=== PATIENT | male | born 1955 | race Caucasian/White ===

== ENCOUNTER 2024-03-27 12:56 | Emergency (ER) | payer OTHER ==
--- NOTE | 2024-03-27 13:35 | ED ---
Abdominal Pain HPI - General Source: patient, RN notes reviewed, old records reviewed Mode of arrival: ambulatory Limitations: no limitations <Vinod Cox - Last Filed: 03/27/24 13:35> <Vinod Madrigal - Last Filed: 03/27/24 19:09> - General Chief Complaint: Abdominal Pain Stated Complaint: Abd pain - History of Present Illness Initial Comments: QN- Male to ER for evaluation of severe abdominal pain. Decreased bowel movements positive nausea, no fevers, pain is severe with a long complicated abdominal surgical history (Vinod Cox) This is a 68-year-old male who presents to the emergency department complaining of abdominal pain for last 3 to 4 months. Patient states he went to [employer] today because he is a drinker and he wants some help. Patient states when he got there he told me he was having abdominal pain so they sent him into the emergency department. Patient denies any nausea vomiting. Patient has any diarrhea. I know he told triage that he might have some nausea but he denied it to me. Patient denies chest pain difficulty breathing shortness of breath. Patient has any fever chills or cough. Patient denies any back pain. Patient denies any recent injury or trauma. (Vinod Madrigal) - Related Data Home Medications Medication Instructions Recorded Confirmed Albuterol Sulfate [Ventolin HFA] 1 - 2 puff INHALATION RT-Q4H PRN 03/27/24 03/27/24 Docusate [Colace] 100 mg PO BID PRN 03/27/24 03/27/24 Metoprolol Succinate (ER) [Toprol 25 mg PO DAILY 03/27/24 03/27/24 Xl] Mometasone/Formoterol [Dulera 200 2 puff INHALATION RT-BID 03/27/24 03/27/24 Mcg-5 Mcg Inhaler] Montelukast [Singulair] 10 mg PO DAILY 03/27/24 03/27/24 Multivitamins, Thera [Multivitamin 1 tab PO DAILY 03/27/24 03/27/24 (formulary)] Omeprazole 20 mg PO BID PRN 03/27/24 03/27/24 Rosuvastatin Calcium 5 mg PO DAILY 03/27/24 03/27/24 Tamsulosin [Flomax] 0.4 mg PO DAILY 03/27/24 03/27/24 Tiotropium 2.5 Mcg/Puff [Spiriva 1 puff INHALATION RT-DAILY 03/27/24 03/27/24 Respimat 2.5 Mcg] levETIRAcetam [Keppra] 500 mg PO Q12HR 03/27/24 03/27/24 Allergies Allergy/AdvReac Type Severity Reaction Status Date / Time No Known Allergies Allergy Verified 03/27/24 16:01 Review of Systems ROS Other: All systems not noted in ROS Statement are negative. <Vinod Cox - Last Filed: 03/27/24 13:35> ROS Other: All systems not noted in ROS Statement are negative. <Vinod Madrigal - Last Filed: 03/27/24 19:09> ROS Statement: Those systems with pertinent positive or pertinent negative responses have been documented in the HPI. Past Medical History Past Medical History: Asthma, COPD History of Any Multi-Drug Resistant Organisms: None Reported Additional Past Surgical History / Comment(s): Hernia Repair Past Psychological History: No Psychological Hx Reported Smoking Status: Current every day smoker Past Alcohol Use History: Occasional Past Drug Use History: None Reported <Vinod Cox - Last Filed: 03/27/24 13:35> General Exam Limitations: no limitations General appearance: alert, in no apparent distress Head exam: Present: atraumatic, normocephalic, normal inspection Eye exam: Present: normal appearance, PERRL, EOMI. Absent: scleral icterus, conjunctival injection, periorbital swelling ENT exam: Present: normal exam, mucous membranes moist Neck exam: Present: normal inspection. Absent: tenderness, meningismus, lymphadenopathy Respiratory exam: Present: normal lung sounds bilaterally. Absent: respiratory distress, wheezes, rales, rhonchi, stridor Cardiovascular Exam: Present: regular rate, normal rhythm, normal heart sounds. Absent: systolic murmur, diastolic murmur, rubs, gallop, clicks GI/Abdominal exam: Present: soft, normal bowel sounds. Absent: distended, tenderness, guarding, rebound, rigid Extremities exam: Present: normal inspection, full ROM, normal capillary refill. Absent: tenderness, pedal edema, joint swelling, calf tenderness Back exam: Present: normal inspection Neurological exam: Present: alert, oriented X3, CN II-XII intact Psychiatric exam: Present: normal affect, normal mood Skin exam: Present: warm, dry, intact, normal color. Absent: rash <Vinod Cox - Last Filed: 03/27/24 13:35> <Vinod Madrigal - Last Filed: 03/27/24 19:09> - General Exam Comments Initial Comments: GENERAL: Patient is well-developed and well-nourished. Patient is nontoxic and well- hydrated and is in no acute distress. Patient appears intoxicated ENT: Neck is soft and supple. No significant lymphadenopathy is noted. Oropharynx is clear. Moist mucous membranes. Neck has full range of motion without eliciting any pain. EYES: The sclera were anicteric and conjunctiva were pink and moist. Extraocular movements were intact and pupils were equal round and reactive to light. Eyelids were unremarkable. PULMONARY: Unlabored respirations. Patient has expiratory wheezing CARDIOVASCULAR: There is a regular rate and rhythm without any murmurs gallops or rubs. ABDOMEN: Patient has tenderness in the left lower quadrant. Patient's abdomen is mildly distended SKIN: Patient has ecchymosis on bilateral arms up into the anterior chest NEUROLOGIC: Patient is alert and oriented x3. Cranial nerves II through XII are grossly intact. Motor and sensory are also intact. Normal speech, volume and content. Symmetrical smile. MUSCULOSKELETAL: Normal extremities with adequate strength and full range of motion. LYMPHATICS: No significant lymphadenopathy is noted PSYCHIATRIC: Normal psychiatric evaluation. (Vinod Madrigal) Course <Vinod Cox - Last Filed: 03/27/24 13:35> Vital Signs 03/27/24 03/27/24 03/27/24 13:27 15:33 15:46 Temperature 98.6 F Pulse Rate 98 93 91 Respiratory 20 Rate Blood Pressure 104/68 O2 Sat by Pulse 90 L Oximetry - Reevaluation(s) Reevaluation #1: 03/27/24 13:35 QN completed by myself Dr. Cox (Vinod Cox) Medical Decision Making - Lab Data Result diagrams: 03/27/24 13:51 03/27/24 16:45 <Vinod Madrigal - Last Filed: 03/27/24 19:09> - Medical Decision Making Was pt. sent in by a medical professional or institution (NGUYỄN Guaman, PETROLEUM INSPECTOR SUPERVISOR, urgent care, hospital, or penitentiary...) When possible be specific @ -Patient was sent in by [facility] Did you speak to anyone other than the patient for history (EMS, parent, family, police, friend...)? What history was obtained from this source @ -No Did you review nursing and triage notes (agree or disagree)? Why? @ -I reviewed and agree with nursing and triage notes Were old charts reviewed (outside hosp., previous admission, EMS record, old EKG, old radiological studies, urgent care reports/EKG's, penitentiary records)? Report findings @ -No old charts were reviewed Differential Diagnosis (chest pain, altered mental status, abdominal pain women, abdominal pain men, vaginal bleeding, weakness, fever, dyspnea, syncope, headache, dizziness, GI bleed, back pain, seizure, CVA, palpatations, mental he alth, musculoskeletal)? @ -Differential Abdominal Pain Men: Appendicitis, cholecystitis, diverticulosis, ischemic bowel, pancreatitis, hepatitis, UTI, gastroenteritis, AAA, incarcerated hernia, bowel obstruction, constipation, inflammatory bowel, hepatitis, peptic ulcer disease, splenic infarction, perforated viscus, testicular torsion, this is not meant to be an all-inclusive list EKG interpreted by me (3pts min.). @ -As above X-rays interpreted by me (1pt min.). @ -None done CT interpreted by me (1pt min.). @ -CT of the abdomen pelvis showed no acute abnormality U/S interpreted by me (1pt. min.). @ -None done What testing was considered but not performed or refused? (CT, X-rays, U/S, lab s)? Why? @ -None What meds were considered but not given or refused? Why? @ -None Did you discuss the management of the patient with other professionals (professionals i.e. NGUYỄN Guaman, PETROLEUM INSPECTOR SUPERVISOR, lab, RT, psych nurse, clinical social worker, hvac mechanical engineer, teacher, radiation officer, family caseworker)? Give summary @ -No Was smoking cessation discussed for >3mins.? @ -No Was critical care preformed (if so, how long)? @ -No Were there social determinants of health that impacted care today? How? (Homelessness, low income, unemployed, alcoholism, drug addiction, transportation, low edu. Level, literacy, decrease access to med. care, custodial, rehab)? @ -No Was there de-escalation of care discussed even if they declined (Discuss DNR or withdrawal of care, Hospice)? DNR status @ -No What co-morbidities impacted this encounter? (DM, HTN, Smoking, COPD, CAD, Cancer, CVA, ARF, Chemo, Hep., AIDS, mental health diagnosis, sleep apnea, morbid obesity)? @ -None Was patient admitted / discharged? Hospital course, mention meds given and route, prescriptions, significant lab abnormalities, going to OR and other pertinent info. @ -Patient did not appear in any distress in the emergency department. Patient was eating while in the emergency department. Patient was ambulating around the emergency department with no distress. Patient will be discharged to go back to [facility] Undiagnosed new problem with uncertain prognosis? @ -No Drug Therapy requiring intensive monitoring for toxicity (Heparin, Nitro, Insulin, Cardizem)? @ -No Were any procedures done? @ -No Diagnosis/symptom? @ -Abdominal pain Acute, or Chronic, or Acute on Chronic? @ -Acute Uncomplicated (without systemic symptoms) or Complicated (systemic symptoms)? @ -Complicated Side effects of treatment? @ -No Exacerbation, Progression, or Severe Exacerbation? @ -No Poses a threat to life or bodily function? How? (Chest pain, [place], [place], pneumonia, PE, COPD, DKA, ARF, appy, cholecystitis, CVA, Diverticulitis, Homicidal, Suicidal, threat to staff... and all critical care pts) @ -No Diagnosis/symptom? @ -Alcohol intoxication Acute, or Chronic, or Acute on Chronic? @ -Acute Uncomplicated (without systemic symptoms) or Complicated (systemic symptoms)? @ -Complicated Side effects of treatment? @ -None Exacerbation, Progression, or Severe Exacerbation] @ -No Poses a threat to life or bodily function? @ -No (Vinod Madrigal) - Lab Data Lab Results 03/27/24 03/27/24 03/27/24 Range/Units 13:51 16:45 16:45 WBC 8.3 (3.8-10.6) k/uL RBC 4.42 (4.30-5.90) m/uL Hgb 13.4 (13.0-17.5) gm/dL Hct 42.4 (39.0-53.0) % MCV 96.0 (80.0-100.0) fL MCH 30.3 (25.0-35.0) pg MCHC 31.6 (31.0-37.0) g/dL RDW 20.8 H (11.5-15.5) % Plt Count 100 L (150-450) k/uL MPV 8.4 Neutrophils % 79 % Lymphocytes % 9 % Monocytes % 8 % Eosinophils % 0 % Basophils % 0 % Neutrophils # 6.5 (1.3-7.7) k/uL Lymphocytes # 0.7 L (1.0-4.8) k/uL Monocytes # 0.7 (0-1.0) k/uL Eosinophils # 0.0 (0-0.7) k/uL Basophils # 0.0 (0-0.2) k/uL Anisocytosis Moderate Macrocytosis Slight PT 10.8 (10.0-12.5) sec INR 1.0 (<1.2) APTT 24.4 (22.0-30.0) sec Sodium (137-145) mmol/L Potassium (3.5-5.1) mmol/L Chloride (98-107) mmol/L Carbon Dioxide (22-30) mmol/L Anion Gap mmol/L BUN (9-20) mg/dL Creatinine (0.66-1.25) mg/dL Est GFR (CKD-EPI)AfAm (>60 ml/min/1.73 sqM) Est GFR (CKD-EPI)NonAf (>60 ml/min/1.73 sqM) Glucose (74-99) mg/dL Plasma Lactic Acid Fredrick 1.7 (0.7-2.0) mmol/L Calcium (8.4-10.2) mg/dL Total Bilirubin (0.2-1.3) mg/dL AST (17-59) U/L ALT (4-49) U/L Alkaline Phosphatase (38-126) U/L Total Protein (6.3-8.2) g/dL Albumin (3.5-5.0) g/dL Amylase (30-110) U/L Lipase (23-300) U/L Serum Alcohol mg/dL 03/27/24 Range/Units 16:45 WBC (3.8-10.6) k/uL RBC (4.30-5.90) m/uL Hgb (13.0-17.5) gm/dL Hct (39.0-53.0) % MCV (80.0-100.0) fL MCH (25.0-35.0) pg MCHC (31.0-37.0) g/dL RDW (11.5-15.5) % Plt Count (150-450) k/uL MPV Neutrophils % % Lymphocytes % % Monocytes % % Eosinophils % % Basophils % % Neutrophils # (1.3-7.7) k/uL Lymphocytes # (1.0-4.8) k/uL Monocytes # (0-1.0) k/uL Eosinophils # (0-0.7) k/uL Basophils # (0-0.2) k/uL Anisocytosis Macrocytosis PT (10.0-12.5) sec INR (<1.2) APTT (22.0-30.0) sec Sodium 140 (137-145) mmol/L Potassium 4.7 (3.5-5.1) mmol/L Chloride 109 H (98-107) mmol/L Carbon Dioxide 21 L (22-30) mmol/L Anion Gap 10 mmol/L BUN 28 H (9-20) mg/dL Creatinine 0.86 (0.66-1.25) mg/dL Est GFR (CKD-EPI)AfAm >90 (>60 ml/min/1.73 sqM) Est GFR (CKD-EPI)NonAf 89 (>60 ml/min/1.73 sqM) Glucose 99 (74-99) mg/dL Plasma Lactic Acid Fredrick (0.7-2.0) mmol/L Calcium 8.2 L (8.4-10.2) mg/dL Total Bilirubin 1.3 (0.2-1.3) mg/dL AST 91 H (17-59) U/L ALT 79 H (4-49) U/L Alkaline Phosphatase 239 H (38-126) U/L Total Protein 7.7 (6.3-8.2) g/dL Albumin 3.9 (3.5-5.0) g/dL Amylase 65 (30-110) U/L Lipase 215 (23-300) U/L Serum Alcohol 148 mg/dL Disposition <Roskopp,Vinod B - Last Filed: 03/27/24 13:35> Is patient prescribed a controlled substance at d/c from ED?: No Time of Disposition: 19:09 <Vinod Madrigal - Last Filed: 03/27/24 19:09> Clinical Impression: Alcohol intoxication, Abdominal pain Disposition: HOME SELF-CARE Condition: Good Instructions (If sedation given, give patient instructions): Abdominal Pain (ED) Referrals: Nonstaff,Physician [REFERRING] - 1-2 days
[2024-03-27 14:55] LABS: Anisocytosis Moderate; Basophils % (A) 0 %; Eosinophils % (A) 0 %; HCT 42.4 % (39.0-53.0); HGB 13.4 gm/dL (13.0-17.5); Lymphocytes # (A) 0.7 k/uL (1.0-4.8); Lymphocytes % (A) 9 %; MCH 30.3 pg (25.0-35.0); MCHC 31.6 g/dL (31.0-37.0); Macrocytosis Slight; Mean Platelet Volume 8.4; Monocytes # (A) 0.7 k/uL (0-1.0); Monocytes % (A) 8 %; Neutrophils # (A) 6.5 k/uL (1.3-7.7); Neutrophils % (A) 79 %; Platelet Count 100 k/uL (150-450); RBC 4.42 m/uL (4.30-5.90); RDW 20.8 % (11.5-15.5); WBC 8.3 k/uL (3.8-10.6)
[2024-03-27] MEDS: IPRATROPIUM-ALBUTEROL 3 ML NEB INHALATION STA (15:32)
[2024-03-27] MEDS: ACETAMINOPHEN IV (For NPO) 1,000 MG in EMPTY BAG 1 BAG IVPB STA (16:09)
[2024-03-27 17:08] LABS: Partial Thromboplastin Time 24.4 sec (22.0-30.0); Prothrombin Time 10.8 sec (10.0-12.5)
[2024-03-27 17:11] LABS: ALT 79 U/L (4-49); African American GFR (CKD) >90 (>60 ml/min/1.73 sqM); Albumin 3.9 g/dL (3.5-5.0); Amylase 65 U/L (30-110); Anion Gap 10 mmol/L; Blood Urea Nitrogen 28 mg/dL (9-20); Calcium 8.2 mg/dL (8.4-10.2); Carbon Dioxide 21 mmol/L (22-30); Chloride 109 mmol/L (98-107); Glucose 99 mg/dL (74-99); Lipase 215 U/L (23-300); Non-African American GFR(CKD) 89 (>60 ml/min/1.73 sqM); Sodium 140 mmol/L (137-145); Total Bilirubin 1.3 mg/dL (0.2-1.3); Total Protein 7.7 g/dL (6.3-8.2)
[2024-03-27 17:21] LABS: AST 91 U/L (17-59); Alcohol 148 mg/dL; Alkaline Phosphatase 239 U/L (38-126); Potassium 4.7 mmol/L (3.5-5.1)
--- NOTE | 2024-03-27 18:10 | CT ---
EXAMINATION TYPE: CT abdomen pelvis w con CT DLP: 976 mGycm, Automated exposure control for dose reduction was used. DATE OF EXAM: 03/27/2024 5:54 PM COMPARISON: None. CLINICAL INDICATION:Male, 68 years old with history of abdominal pain; LLQ abdominal pain TECHNIQUE: Axial CT abdomen pelvis w con;Sagittal and coronal reformats were created on a separate w orkstation. Contrast used:100 ml mL of Isovue 300 with IV Contrast, (none if empty) Oral contrast used: without Oral Contrast (none if empty) FINDINGS: LOWER CHEST: Unremarkable ABDOMEN LIVER: Nodular contour to liver. Diffuse low-attenuation liver parenchyma. GALLBLADDER AND BILE DUCTS: Unremarkable. PANCREAS: Unremarkable. SPLEEN: Unremarkable. ADRENAL GLANDS: Unremarkable. KIDNEYS AND URETERS: No evidence of hydronephrosis or renal calculus. The ureters are unremarkable. PELVIS BLADDER: Unremarkable REPRODUCTIVE: Unremarkable. ABDOMEN & PELVIS STOMACH AND BOWEL: No evidence of bowel obstruction. PERITONEUM/RETROPERITONEUM: No evidence of pneumoperitoneum or free fluid. VASCULATURE: No evidence of aortic aneurysm. MUSCULOSKELETAL: No acute osseous abnormalities, grade 1 anterolisthesis of L4 on L5. Multilevel oste ophyte formation disc space narrowing and facet joint arthropathy. LYMPH NODES: No gross evidence for lymphadenopathy. SOFT TISSUE/ABDOMINAL WALL: Unremarkable IMPRESSION: 1. Extensive colonic diverticulosis. No overt diverticulitis visualized. No obstructive uropathy or renal calculus. 2. Hepatic steatosis with nodular contour suggestive of cirrhosis. 3. Colonic diverticulosis.
[2024-03-27] MEDS: SODIUM CHLORIDE 0.9% 1,000 ML IV ONE (18:32)
[2024-03-27] MEDS: LORazepam 2 MG/ML INJ IV STA (18:32)
[2024-03-27] MEDS: SODIUM CHLORIDE 0.9% 1,000 ML with MVI, ADULT NO.4 WITH VIT K 10 ML, THIAMINE 100 MG, F... IV ONE (18:34)
[2024-03-27 19:34] VITALS: BP 180/99; PULSE 65; RESP 16; TEMP 98.7
== END 2024-03-27 19:42 | disposition home or self-care (01) ==
LOC: EC 12:56
DX: F10.129 Alcohol abuse with intoxication, unspecified (principal); R10.32 Left lower quadrant pain; F17.200 Nicotine dependence, unspecified, uncomplicated; Y90.6 Blood alcohol level of 120-199 mg/100 ml
CPT/HCPCS: 99284 ×2; 96374; 96375 ×3; 96361; 36415; 94640; 80053; 82150; 83605; 83690; 85025; 85610; 85730; 80320; 74177; 96365; J2060; J3411; J0131; Q9967

== ENCOUNTER 2025-03-15 10:26 | Emergency (ER) | payer OTHER, MEDICARE ==
[2025-03-15 10:42] VITALS: BP 140/96; RESP 22; TEMP 97.8
[2025-03-15 11:44] LABS: Basophils # (A) 0.05 10*3/uL (0.00-0.10); Basophils % (A) 0.5 %; Eosinophils # (A) 0.15 10*3/uL (0.04-0.35); Eosinophils % (A) 1.4 %; HGB 13.3 g/dL (13.0-17.0); Lymphocytes # (A) 1.04 10*3/uL (0.90-5.00); Lymphocytes % (A) 9.4 %; MCH 32.9 pg (27.0-32.0); MCHC 34.1 g/dL (32.0-37.0); MCV 96.5 fL (80.0-97.0); Mean Platelet Volume 10.4 fL (9.5-12.2); Monocytes # (A) 0.76 10*3/uL (0.20-1.00); Monocytes % (A) 6.9 %; Neutrophils # (A) 8.95 10*3/uL (1.80-7.70); Neutrophils % (A) 81.3 %; RBC 4.04 10*6/uL (4.40-5.60); RDW 14.1 % (11.5-14.5); WBC 11.01 10*3/uL (4.50-10.00)
[2025-03-15 11:50] LABS: ALT 26 U/L (4-49); AST 31 U/L (17-59); African American GFR (CKD) 82 (>60 ml/min/1.73 sqM); Albumin 4.1 g/dL (3.5-5.0); Alkaline Phosphatase 172 U/L (38-126); Anion Gap 11 mmol/L; Blood Urea Nitrogen 20 mg/dL (9-20); Calcium 9.6 mg/dL (8.4-10.2); Carbon Dioxide 23 mmol/L (22-30); Chloride 106 mmol/L (98-107); Glucose 117 mg/dL (74-99); Magnesium 1.6 mg/dL (1.6-2.3); Non-African American GFR(CKD) 71 (>60 ml/min/1.73 sqM); Potassium 3.8 mmol/L (3.5-5.1); Sodium 140 mmol/L (137-145); Total Bilirubin 0.8 mg/dL (0.2-1.3); Total Protein 8.4 g/dL (6.3-8.2)
--- NOTE | 2025-03-15 11:56 | XR ---
EXAMINATION TYPE: XR chest 2V DATE OF EXAM: 03/15/2025 CLINICAL INDICATION: Male, 69 years old with history of difficulty breathing, TECHNIQUE: Frontal and lateral views of the chest are obtained. COMPARISON: None FINDINGS: Chronic emphysematous changes are present. Overlying EKG leads are seen. There is no suspicious focal air space opacity, pleural effusion, or pneumothorax seen. The cardiac silhouette size is within no rmal limits. The osseous structures are intact. IMPRESSION: Chronic emphysematous change without acute pulmonary process. [facility], , 03/15/2025 11:54 AM
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
[2025-03-15 12:03] LABS: INR 1.1 (<1.2); Partial Thromboplastin Time 25.1 sec (22.0-30.0); Prothrombin Time 11.5 sec (10.0-12.5)
[2025-03-15] MEDS: HYDROcodone/APAP 5-325MG 1 EACH TAB PO STA (12:04)
[2025-03-15] MEDS: methylPREDNISolone SOD SUCCI 125 MG/2 ML VIAL IV STA (12:05)
[2025-03-15] MEDS: ALBUTEROL NEBULIZED 2.5 MG/3 ML INHALATION STA (12:22)
[2025-03-15] MEDS: IPRATROPIUM 0.5 MG/2.5 ML NEBU INHALATION STA (12:22)
[2025-03-15] MEDS ORDERED: HYDROmorphone 1 MG/ML 1 ML SYRINGE IVP STA (12:35)
[2025-03-15 12:37] LABS: Platelet Count 110 10*3/uL (140-440)
[2025-03-15 12:38] LABS: RBC Morphology Normal
[2025-03-15] MEDS ORDERED: HYDROcodone/APAP 5-325MG 1 EACH TAB PO PRN (12:41)
[2025-03-15] MEDS ORDERED: IPRATROPIUM-ALBUTEROL 3 ML NEB INHALATION PRN (12:41)
[2025-03-15] MEDS ORDERED: NALOXONE 0.4 MG/ML 1 ML VIAL IVP PRN (12:41)
[2025-03-15] MEDS ORDERED: HYDROmorphone 0.5 MG/0.5 ML SYRINGE IVP PRN (12:42)
[2025-03-15 12:45] VITALS: PULSE 102
[2025-03-15] MEDS ORDERED: ACETAMINOPHEN TAB 500 MG TAB PO PRN (15:07)
[2025-03-15] MEDS ORDERED: IPRATROPIUM-ALBUTEROL 3 ML NEB INHALATION SCH (16:00)
[2025-03-15] MEDS ORDERED: methylPREDNISolone SOD SUCCI 125 MG/2 ML VIAL IV SCH (18:00)
== END 2025-03-15 13:10 | disposition left against medical advice (07) ==
LOC: EC 10:26 → UNDOADMOB 12:41 → 6NMEDSUR 12:41 → EC 13:10 → UNDODISOB 13:10
DX: J44.1 Chronic obstructive pulmonary disease with (acute) exacerbation (principal); F17.200 Nicotine dependence, unspecified, uncomplicated; Z79.899 Other long term (current) drug therapy; Z79.51 Long term (current) use of inhaled steroids; Z53.29 Procedure and treatment not carried out because of patient's decision for other reasons
CPT/HCPCS: 96374 ×2; 99285 ×2; 36415; 94640; 93005; 80053; 83605; 83735; 85025; 85610; 85730; 87040; 84145; 71046; J2919

== ENCOUNTER 2025-03-29 19:22 | Emergency (ER) | payer OTHER, MEDICARE ==
[2025-03-29 19:34] VITALS: BP 112/75; PULSE 105; RESP 18
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
[2025-03-29] MEDS: HYDROmorphone 0.5 MG/0.5 ML SYRINGE IVP STA (20:02)
[2025-03-29] MEDS: LACTATED RINGERS 1,000 ML IV ONE (20:02)
[2025-03-29 20:10] LABS: Basophils # (A) 0.11 10*3/uL (0.00-0.10); Basophils % (A) 0.8 %; Eosinophils # (A) 0.37 10*3/uL (0.04-0.35); Eosinophils % (A) 2.7 %; HCT 40.2 % (39.6-50.0); HGB 13.5 g/dL (13.0-17.0); Lymphocytes # (A) 2.38 10*3/uL (0.90-5.00); Lymphocytes % (A) 17.4 %; MCH 32.7 pg (27.0-32.0); MCHC 33.6 g/dL (32.0-37.0); MCV 97.3 fL (80.0-97.0); Mean Platelet Volume 9.9 fL (9.5-12.2); Monocytes # (A) 0.75 10*3/uL (0.20-1.00); Monocytes % (A) 5.5 %; Neutrophils # (A) 9.81 10*3/uL (1.80-7.70); Neutrophils % (A) 71.8 %; Platelet Count 147 10*3/uL (140-440); RBC 4.13 10*6/uL (4.40-5.60); RDW 14.6 % (11.5-14.5); WBC 13.67 10*3/uL (4.50-10.00)
[2025-03-29 20:20] LABS: INR 1.1 (<1.2); Partial Thromboplastin Time 22.5 sec (22.0-30.0); Prothrombin Time 11.5 sec (10.0-12.5)
[2025-03-29 20:23] LABS: ALT 45 U/L (4-49); AST 53 U/L (17-59); African American GFR (CKD) 59 (>60 ml/min/1.73 sqM); Albumin 4.3 g/dL (3.5-5.0); Alkaline Phosphatase 133 U/L (38-126); Anion Gap 13 mmol/L; Blood Urea Nitrogen 31 mg/dL (9-20); Calcium 9.5 mg/dL (8.4-10.2); Carbon Dioxide 21 mmol/L (22-30); Chloride 107 mmol/L (98-107); Glucose 103 mg/dL (74-99); Lipase 316 U/L (23-300); Magnesium 1.9 mg/dL (1.6-2.3); Non-African American GFR(CKD) 51 (>60 ml/min/1.73 sqM); Potassium 3.9 mmol/L (3.5-5.1); Sodium 141 mmol/L (137-145); Total Bilirubin 0.6 mg/dL (0.2-1.3); Total Protein 8.5 g/dL (6.3-8.2)
[2025-03-29 20:46] LABS: Alcohol 154 mg/dL
[2025-03-29] MEDS: LACTATED RINGERS 500 ML IV ONE (21:05)
[2025-03-29] MEDS: LORazepam 1 MG/0.5 ML VIAL IV STA (21:09)
--- NOTE | 2025-03-29 21:19 | CT ---
EXAMINATION TYPE: CT ChestAbdPelvis w con DATE OF EXAM: 03/29/2025 8:31 PM COMPARISON: None. CLINICAL INDICATION: Male, 69 years old with history of Chest and abdominal pain; H, PATIENT FOUND UNRESPONSIVE IN PARK. COMPLAINS OF ABDOMINAL PAIN Technique: CT ChestAbdPelvis w con; Multiple axial images were obtained. Two-dimensional coronal and sagittal reconstructions were obtained. Contrast used: mL of Isovue 300 with IV Contrast, (None if empty) Oral contrast used: without Oral Contrast CT DLP: 872.4 mGycm, Automated exposure control for dose reduction was used. Findings: CHEST: LUNGS/ PLEURA: Bibasilar is atelectasis changes. No focal consolidation, pneumothorax or pleural effu alexandra. AIRWAY: Patent and unremarkable. HEART: Size within normal limits. Moderate coronary artery calcifications present. MEDIASTINUM: No gross evidence of adenopathy. VASCULATURE: Atherosclerotic calcifications are present throughout the aorta and its branches. MUSCULOSKELETAL: Mild disc degeneration changes are present throughout the thoracolumbar spine. SOFT TISSUES/LYMPH NODES: Unremarkable. LOWER NECK: No significant findings. ABDOMEN: ABDOMEN LIVER: Nodular contour to liver compatible with cirrhosis no suspicious observations. An arterial enh ancing lesion measuring 14 mm in segment 4A. GALLBLADDER AND BILE DUCTS: The gallbladder is surgically absent. PANCREAS: Unremarkable. SPLEEN: Unremarkable. ADRENAL GLANDS: Unremarkable. KIDNEYS AND URETERS: No evidence of hydronephrosis or obstructing renal calculus. The ureters are unr emarkable. PELVIS BLADDER: Unremarkable REPRODUCTIVE: Unremarkable. ABDOMEN & PELVIS STOMACH AND BOWEL: . Scattered diverticula are noted throughout the colon. No evidence of bowel obstr uction. PERITONEUM/RETROPERITONEUM: No evidence of pneumoperitoneum or free fluid. VASCULATURE: Mild atherosclerotic calcifications are present throughout the abdominal aorta and its b ranches. No evidence of aortic aneurysm. MUSCULOSKELETAL: New from prior L4 compression deformity anteriorly without definitive 50% height loss. Stable mild le ss than 20% compression deformities of the superior endplate of T12. Grade 1 anterolisthesis of L4 an d L5. Moderate disc degeneration changes are present throughout the thoracolumbar spine. LYMPH NODES: No gross evidence for lymphadenopathy. SOFT TISSUE/ABDOMINAL WALL: Surgical clips along the anterior abdominal wall. IMPRESSION: 1. New from prior 03/27/2024, L4 compression deformity of the spine with. Consider further evaluation with MRI. No additional evidence for acute thoracic or abdominal process. 2. Hepatic cirrhosis with arterially enhancing 14 mm lesion visualized which is indeterminate. There are mass protocol MRI recommended for complete evaluation. 3. Colonic diverticulosis. [facility], , 03/29/2025 9:17 PM
--- NOTE | 2025-03-29 21:43 | XR ---
EXAMINATION TYPE: XR humerus RT DATE OF EXAM: 03/29/2025 9:05 PM COMPARISON: 03/15/2025 CLINICAL INDICATION: Male, 69 years old with history of Trauma, pain TECHNIQUE: XR humerus RT examined in frontal and lateral projections. FINDINGS: No evidence of acute osseous pathology, joint dislocation, or soft tissue swelling. The rem aining portions of the visualized chest are unremarkable. Degeneration changes of the shoulder with o steophyte formation of the glenoid, humeral head acromion and clavicle. IMPRESSION: No acute osseous pathology. Mild shoulder osteoarthrosis.. [facility], , 03/29/2025 9:40 PM
== END 2025-03-30 00:36 | disposition home or self-care (01) ==
LOC: EC 19:22
DX: R41.82 Altered mental status, unspecified (principal); F17.200 Nicotine dependence, unspecified, uncomplicated
CPT/HCPCS: 36415 ×2; 93005; 80053; 83605; 83690; 83735; 85025; 85610; 85730; 80320; 73060; 71260; 74177; 99285; 96374; 96375; 96361; J2060; J1171; Q9967

== ENCOUNTER 2025-05-12 12:37 | Emergency (ER) | payer OTHER, MEDICARE ==
[2025-05-12 12:46] VITALS: TEMP 99.9
--- NOTE | 2025-05-12 13:08 | ED ---
General Adult HPI - General Chief complaint: Abdominal Pain Stated complaint: Lower abd pain Time Seen by Provider: 05/12/25 12:39 Source: patient Mode of arrival: EMS Limitations: no limitations - History of Present Illness Initial comments: Dictation was produced using Upptalk dictation software. please excuse any grammatical, word or spelling errors. Chief Complaint: 69-year-old male with abdominal pain History of Present Illness: Patient 69-year-old male with acute on chronic abdominal pain states that his belly has been hurting more over the last 48 hours. Patient states that his belly pain began in the 1980s after he reports a complicated hernia surgery. States that he has not been able to find a surgeon that we will deal with the issues with the mesh that he was told was causing his abdominal symptoms. Patient states has been eating. States that he has been having bowel movements. States that his left abdomen seems to be the most tender. States that he has on and off abdominal symptoms for the last several years. Denies any constitutional symptoms. The ROS documented in this emergency department record has been reviewed and confirmed by me. Those systems with pertinent positive or negative responses have been documented in the HPI. All other systems are other negative and/or noncontributory. - Related Data Home Medications Medication Instructions Recorded Confirmed Albuterol Sulfate [Ventolin HFA] 1 - 2 puff INHALATION RT-Q4H PRN 03/27/24 03/15/25 Tiotropium 2.5 Mcg/Puff [Spiriva 1 puff INHALATION RT-DAILY 03/27/24 03/15/25 Respimat 2.5 Mcg] Acetaminophen Tab [Tylenol] 650 mg PO Q4H PRN 03/15/25 03/15/25 Gabapentin 800 mg PO Q8H 03/15/25 03/15/25 Ibuprofen [Motrin] 600 mg PO TID-W/MEALS 03/15/25 03/15/25 Pantoprazole Sodium [Protonix] 40 mg PO DAILY 03/15/25 03/15/25 Sennosides/Docusate Sodium 1 tab PO BID PRN 03/15/25 03/15/25 [Senna-S 8.6-50 mg Tablet] methocarbamoL [Robaxin-750] 750 mg PO TID PRN 03/15/25 03/15/25 oxyCODONE HCL [oxyCODONE HCL (IR)] 10 mg PO Q4H PRN 03/15/25 03/15/25 traZODone HCL [Desyrel] 50 mg PO HS 03/15/25 03/15/25 Previous Rx's Medication Instructions Recorded Nicotine 21Mg/24Hr Patch [Habitrol] 1 patch TRANSDERM DAILY 30 Days 03/16/25 #30 patch predniSONE [Deltasone] 40 mg PO DAILY 4 Days #8 tab 03/16/25 Allergies Allergy/AdvReac Type Severity Reaction Status Date / Time No Known Allergies Allergy Verified 03/29/25 19:35 Review of Systems ROS Statement: Those systems with pertinent positive or pertinent negative responses have been documented in the HPI. ROS Other: All systems not noted in ROS Statement are negative. Past Medical History Past Medical History: Asthma, COPD Additional Past Medical History / Comment(s): ETOH-Not current History of Any Multi-Drug Resistant Organisms: None Reported Additional Past Surgical History / Comment(s): Hernia Repair Past Psychological History: No Psychological Hx Reported Smoking Status: Current every day smoker Past Alcohol Use History: Occasional Past Drug Use History: None Reported General Exam - General Exam Comments Initial Comments: PHYSICAL EXAM: General Impression: Alert and oriented x3, not in acute distress HEENT: Normocephalic atraumatic, extra-ocular movements intact, pupils equal and reactive to light bilaterally, mucous membranes moist. Cardiovascular: Heart regular rate and rhythm Chest: Able to complete full sentences, no retractions, no tachypnea Abdomen: abdomen soft, diffuse palpatory abdominal tenderness, non-distended, no organomegaly Musculoskeletal: Pulses present and equal in all extremities, no peripheral edema Motor: no focal deficits noted Neurological: CN II-XII grossly intact, no focal motor or sensory deficits noted Skin: Intact with no visualized rashes Psych: Normal affect and mood Limitations: no limitations Course Vital Signs 05/12/25 05/12/25 12:41 14:07 Temperature 99.9 F H Pulse Rate 82 93 Respiratory 18 20 Rate Blood Pressure 161/100 147/88 O2 Sat by Pulse 95 95 Oximetry EKG Findings - EKG Comments: EKG Findings:: My EKG interpretation: Ventricular rate 87, sinus rhythm, WI 133, QRS 88, QTc 410. No WI prolongation, no QTC prolongation, no ST or T-wave changes noted. Overall, this EKG is unremarkable Medical Decision Making - Medical Decision Making Was pt. sent in by a medical professional or institution (, PA, DIVISION FIELD INSPECTOR, urgent care, hospital, or senior care...) When possible be specific @ -No Did you speak to anyone other than the patient for history (EMS, parent, family, police, friend...)? What history was obtained from this source @ -No Did you review nursing and triage notes (agree or disagree)? Why? @ -I reviewed and agree with nursing and triage notes Were old charts reviewed (outside hosp., previous admission, EMS record, old EKG, old radiological studies, urgent care reports/EKG's, senior care records)? Report findings @ -No old charts were reviewed Differential Diagnosis (chest pain, altered mental status, abdominal pain women, abdominal pain men, vaginal bleeding, musculoskeletal, weakness, fever, dyspnea, syncope, headache, dizziness, GI bleed, back pain, seizure, CVA, palpatations, mental health)? @ -Differential Abdominal Pain Men: Appendicitis, cholecystitis, diverticulosis, ischemic bowel, pancreatitis, hepatitis, UTI, gastroenteritis, AAA, incarcerated hernia, bowel obstruction, constipation, inflammatory bowel, hepatitis, peptic ulcer disease, splenic infarction, perforated viscus, testicular torsion, this is not meant to be an all-inclusive list EKG interpreted by me (3pts min.). @ -None done X-rays interpreted by me (1pt min.). @ -X-ray of the left hip and abdomen shows no acute processes CT interpreted by me (1pt min.). @ -None done U/S interpreted by me (1pt. min.). @ -None done What testing was considered but not performed or refused? (CT, X-rays, U/S, labs)? Why? @ -None What meds were considered but not given or refused? Why? @ -None Was smoking cessation discussed for >3mins.? @ -No Were there social determinants of health that impacted care today? How? (Homelessness, low income, unemployed, alcoholism, drug addiction, transportation, low edu. Level, literacy, decrease access to med. care, [facility], rehab)? @ -No Was there de-escalation of care discussed even if they declined (Discuss DNR or withdrawal of care, Hospice)? DNR status @ -No What co-morbidities impacted this encounter? (DM, HTN, Smoking, COPD, CAD, Cancer, CVA, ARF, Chemo, Hep., AIDS, mental health diagnosis, sleep apnea, morbid obesity)? @ -Chronic abdominal pain with history of complicated hernia mesh repair Was patient admitted / discharged? Hospital course, mention meds given and route, prescriptions, significant lab abnormalities, going to OR and other pertinent info. @ -69-year-old male presents to the emergency department for acute on chronic abdominal pain. Patient also has some chronic hip pain. Vital signs stable. Abdomen soft. Labs unremarkable. Patient given analgesics with improvement of his symptoms. Patient agreeable for discharge states he feels better patient has no high risk features. Patient given analgesic starter pack. Did you discuss the management of the patient with other professionals (professionals i.e. , PA, DIVISION FIELD INSPECTOR, lab, RT, psych nurse, social insurance analyst, product builder, teacher, sales promotion officer, residential case manager)? Give summary @ -No Was critical care preformed (if so, how long)? @ -No Undiagnosed new problem with uncertain prognosis? @ -No Drug Therapy requiring intensive monitoring for toxicity (Heparin, Nitro, Insulin, Cardizem)? @ -No Were any procedures done? @ -No Diagnosis/symptom? Acute, or Chronic, or Acute on Chronic? Uncomplicated (without systemic symptoms) or Complicated (systemic symptoms)? @ -Acute on chronic abdominal pain Side effects of treatment? @ -No Exacerbation, Progression, or Severe Exacerbation? @ -No Poses a threat to life or bodily function? How? (Chest pain, [place], [place], pneumonia, PE, COPD, DKA, ARF, appy, cholecystitis, CVA, Diverticulitis, Homicidal, Suicidal, threat to staff... and all critical care pts) @ -No - Lab Data Result diagrams: 05/12/25 13:08 05/12/25 13:08 Lab Results 05/12/25 05/12/25 05/12/25 Range/Units 13:08 13:08 13:08 WBC 5.69 (4.50-10.00) 10*3/uL RBC 4.17 L (4.40-5.60) 10*6/uL Hgb 13.2 (13.0-17.0) g/dL Hct 39.0 L (39.6-50.0) % MCV 93.5 (80.0-97.0) fL MCH 31.7 (27.0-32.0) pg MCHC 33.8 (32.0-37.0) g/dL Plt Count 203 (140-440) 10*3/uL MPV 11.0 (9.5-12.2) fL Immature Gran % (Auto) 0.9 % Neutrophils % 74.2 % Lymphocytes % 16.5 % Monocytes % 6.0 % Eosinophils % 1.9 % Basophils % 0.5 % Immature Gran # 0.05 H (0.00-0.04) 10*3/uL Neutrophils # 4.22 (1.80-7.70) 10*3/uL Lymphocytes # 0.94 (0.90-5.00) 10*3/uL Monocytes # 0.34 (0.20-1.00) 10*3/uL Eosinophils # 0.11 (0.04-0.35) 10*3/uL Basophils # 0.03 (0.00-0.10) 10*3/uL Sodium 138 (137-145) mmol/L Potassium 5.2 H (3.5-5.1) mmol/L Chloride 101 (98-107) mmol/L Carbon Dioxide 25 (22-30) mmol/L Anion Gap 12 mmol/L BUN 20 (9-20) mg/dL Creatinine 0.73 (0.66-1.25) mg/dL Est GFR (CKD-EPI)AfAm >90 (>60 ml/min/1.73 sqM) Est GFR (CKD-EPI)NonAf >90 (>60 ml/min/1.73 sqM) Glucose 103 H (74-99) mg/dL Plasma Lactic Acid Fredrick 1.4 (0.7-2.0) mmol/L Calcium 9.6 (8.4-10.2) mg/dL Total Bilirubin 1.1 (0.2-1.3) mg/dL AST 60 H (17-59) U/L ALT 56 H (4-49) U/L Alkaline Phosphatase 153 H (38-126) U/L Total Protein 8.7 H (6.3-8.2) g/dL Albumin 4.3 (3.5-5.0) g/dL Lipase 176 (23-300) U/L Disposition Clinical Impression: Abdominal pain Disposition: HOME SELF-CARE Condition: Fair Instructions (If sedation given, give patient instructions): Abdominal Pain (ED) Is patient prescribed a controlled substance at d/c from ED?: No Referrals: [facility] [NON-STAFF] - 1-2 days [facility] [NON-[facility]FF] - 1-2 days Time of Disposition: 15:06
[2025-05-12 13:13] LABS: Basophils # (A) 0.03 10*3/uL (0.00-0.10); Basophils % (A) 0.5 %; Eosinophils # (A) 0.11 10*3/uL (0.04-0.35); Eosinophils % (A) 1.9 %; HCT 39.0 % (39.6-50.0); HGB 13.2 g/dL (13.0-17.0); Lymphocytes # (A) 0.94 10*3/uL (0.90-5.00); Lymphocytes % (A) 16.5 %; MCH 31.7 pg (27.0-32.0); MCHC 33.8 g/dL (32.0-37.0); MCV 93.5 fL (80.0-97.0); Monocytes # (A) 0.34 10*3/uL (0.20-1.00); Monocytes % (A) 6.0 %; Neutrophils # (A) 4.22 10*3/uL (1.80-7.70); Neutrophils % (A) 74.2 %; Platelet Count 203 10*3/uL (140-440); RBC 4.17 10*6/uL (4.40-5.60); RDW 15.9 % (11.5-14.5); WBC 5.69 10*3/uL (4.50-10.00)
[2025-05-12] MEDS: HYDROmorphone 1 MG/ML 1 ML SYRINGE IVP STA ×2 (13:20→14:38)
[2025-05-12] MEDS: SODIUM CHLORIDE 0.9% 1,000 ML IV STA (13:21)
[2025-05-12 13:27] LABS: ALT 56 U/L (4-49); African American GFR (CKD) >90 (>60 ml/min/1.73 sqM); Albumin 4.3 g/dL (3.5-5.0); Anion Gap 12 mmol/L; Blood Urea Nitrogen 20 mg/dL (9-20); Calcium 9.6 mg/dL (8.4-10.2); Carbon Dioxide 25 mmol/L (22-30); Chloride 101 mmol/L (98-107); Glucose 103 mg/dL (74-99); Lipase 176 U/L (23-300); Non-African American GFR(CKD) >90 (>60 ml/min/1.73 sqM); Sodium 138 mmol/L (137-145); Total Protein 8.7 g/dL (6.3-8.2)
[2025-05-12 13:28] LABS: Potassium 5.2 mmol/L (3.5-5.1)
[2025-05-12 13:29] LABS: AST 60 U/L (17-59); Alkaline Phosphatase 153 U/L (38-126)
--- NOTE | 2025-05-12 14:07 | XR ---
EXAMINATION TYPE: XR abdomen 1V DATE OF EXAM: 05/12/2025 2:01 PM COMPARISON: None. CLINICAL INDICATION: Male, 69 years old with history of abdominal pain, acute on chronic; PHH, pain TECHNIQUE: One radiographic view of the abdomen was obtained. FINDINGS: The bowel gas pattern is nonspecific without dilated loops of small or large bowel. . Fecal material and gas are demonstrated throughout the colon and rectum. There is no evidence for organomegaly or pneumoperitoneum. The osseous structures are intact. No ab normal calcifications are present. Surgical clips in the right upper quadrant of the abdomen. IMPRESSION: Nonobstructive bowel gas pattern without radiographic evidence for acute process. [facility], , 05/12/2025 2:05 PM
--- NOTE | 2025-05-12 14:48 | XR ---
EXAMINATION TYPE: XR Hip Complete LT DATE OF EXAM: 05/12/2025 2:43 PM COMPARISON: None. CLINICAL INDICATION: Male, 69 years old with history of hip pain; PHH, pain TECHNIQUE: XR Hip Complete LT; Frontal and lateral views FINDINGS: No acute fracture or dislocation. Moderate degenerative arthritis of the left hip with asso ciated joint space loss. Vascular calcifications noted. Visualized portion of the pelvic bones appear intact. IMPRESSION: No acute osseous abnormality. [facility], , 05/12/2025 2:46 PM
[2025-05-12] MEDS: ACET/COD 300 MG/30 MG STARTER PACK TAB BTL PO STA (15:47)
[2025-05-12 15:50] VITALS: BP 145/98; PULSE 92; RESP 16
== END 2025-05-12 15:52 | disposition home or self-care (01) ==
LOC: EC 12:37
DX: R10.30 Lower abdominal pain, unspecified (principal); F17.200 Nicotine dependence, unspecified, uncomplicated
CPT/HCPCS: 36415; 93005; 80053; 83605; 83690; 85025; 73502; 74018; 99285; 96374; 96376; 96361; J1171

== ENCOUNTER 2025-05-14 09:39 | Emergency (ER) | payer OTHER, MEDICARE ==
--- NOTE | 2025-05-14 10:14 | ED ---
Abdominal Pain HPI - General Chief Complaint: Abdominal Pain Stated Complaint: Abd pain,SOB Time Seen by Provider: 05/14/25 09:44 Source: patient, RN notes reviewed Mode of arrival: EMS Limitations: no limitations - History of Present Illness Initial Comments: This is a 69-year-old male who presents to the emergency department for abdominal pain. Patient reports left lower quadrant pain that started approximately 7 days ago. He was evaluated here for this 2 days ago and discharged home. States that symptoms continue to get worse and he has now not iced a bulge in this region. He has nausea but no vomiting. Denies any changes in bowel or bladder habits. Believes that his last bowel movement was this morning. Denies any fevers or chills. MD Complaint: abdominal pain - Related Data Home Medications Medication Instructions Recorded Confirmed Albuterol Sulfate [Ventolin HFA] 1 - 2 puff INHALATION RT-Q4H PRN 03/27/24 03/15/25 Tiotropium 2.5 Mcg/Puff [Spiriva 1 puff INHALATION RT-DAILY 03/27/24 03/15/25 Respimat 2.5 Mcg] Acetaminophen Tab [Tylenol] 650 mg PO Q4H PRN 03/15/25 03/15/25 Gabapentin 800 mg PO Q8H 03/15/25 03/15/25 Ibuprofen [Motrin] 600 mg PO TID-W/MEALS 03/15/25 03/15/25 Pantoprazole Sodium [Protonix] 40 mg PO DAILY 03/15/25 03/15/25 Sennosides/Docusate Sodium 1 tab PO BID PRN 03/15/25 03/15/25 [Senna-S 8.6-50 mg Tablet] methocarbamoL [Robaxin-750] 750 mg PO TID PRN 03/15/25 03/15/25 oxyCODONE HCL [oxyCODONE HCL (IR)] 10 mg PO Q4H PRN 03/15/25 03/15/25 traZODone HCL [Desyrel] 50 mg PO HS 03/15/25 03/15/25 Previous Rx's Medication Instructions Recorded Nicotine 21Mg/24Hr Patch [Habitrol] 1 patch TRANSDERM DAILY 30 Days 03/16/25 #30 patch predniSONE [Deltasone] 40 mg PO DAILY 4 Days #8 tab 03/16/25 Dicyclomine [Bentyl] 20 mg PO QID PRN #20 tablet 05/14/25 Ondansetron Odt [Zofran Odt] 4 mg PO Q8HR PRN #15 tab 05/14/25 Allergies Allergy/AdvReac Type Severity Reaction Status Date / Time No Known Allergies Allergy Verified 05/14/25 09:55 Review of Systems ROS Statement: Those systems with pertinent positive or pertinent negative responses have been documented in the HPI. ROS Other: All systems not noted in ROS Statement are negative. Past Medical History Past Medical History: Asthma, COPD Additional Past Medical History / Comment(s): ETOH-Not current History of Any Multi-Drug Resistant Organisms: None Reported Additional Past Surgical History / Comment(s): Hernia Repair Past Psychological History: No Psychological Hx Reported Smoking Status: Current every day smoker Past Alcohol Use History: Occasional Past Drug Use History: None Reported General Exam Limitations: no limitations General appearance: alert, in no apparent distress Head exam: Present: atraumatic, normocephalic, normal inspection Respiratory exam: Present: normal lung sounds bilaterally. Absent: respiratory distress, wheezes, rales, rhonchi, stridor Cardiovascular Exam: Present: regular rate, normal rhythm GI/Abdominal exam: Present: soft, tenderness (LLQ). Absent: distended Neurological exam: Present: alert, oriented X3, CN II-XII intact Psychiatric exam: Present: normal affect, normal mood Skin exam: Present: warm, dry, intact, normal color. Absent: rash Course Vital Signs 05/14/25 05/14/25 05/14/25 09:50 10:25 14:32 Temperature 98.6 F 98.7 F Pulse Rate 97 93 86 Respiratory 18 18 20 Rate Blood Pressure 127/93 160/98 143/100 O2 Sat by Pulse 98 99 96 Oximetry Medical Decision Making - Medical Decision Making This is a 69-year-old male who presents to the emergency department for abdominal pain. Was pt. sent in by a medical professional or institution? @ -No Did you speak to anyone other than the patient for history? @ -No Did you review nursing and triage notes? @ -Yes, and I agree, it is accurate with regards to the patient's symptoms. Were old charts reviewed? @ -Abdominal x-ray from 05/12/2025 revealing no obstructive process. Differential Diagnosis? @ -Differential Abdominal Pain Men: Appendicitis, cholecystitis, diverticulosis, ischemic bowel, pancreatitis, hepatitis, UTI, gastroenteritis, AAA, incarcerated hernia, bowel obstruction, constipation, inflammatory bowel, hepatitis, peptic ulcer disease, splenic infarction, perforated viscus, testicular torsion, this is not meant to be an all-inclusive list EKG interpreted by me (3pts min.)? @ -EKG interpreted by me demonstrating the following: Sinus tachycardia. Ventricular rate 100 bpm, MD interval 154 ms, QRS duration 77 ms, QTc 403 ms. X-rays interpreted by me (1pt min.)? @ -Not obtained CT interpreted by me (1pt min.)? @ -CT scan of the abdomen and pelvis obtained. My interpretation identifies no bowel wall thickening or free air. U/S interpreted by me (1pt. min.)? @ -Not obtained What testing was considered but not performed? (CT, X-rays, U/S, labs)? Why? @ -None What meds were considered but not given? Why? @ -None Did you discuss the management of the patient with other professionals? @ -No Did you reconcile home meds? @ -No Was smoking cessation discussed for >3mins.? @ -No Was critical care preformed (if so, how long)? @ -No Were there social determinants of health that impacted care today? How? (Alejandro elessness, low income, unemployed, alcoholism, drug addiction, transportation, low edu. Level, literacy, decrease access to med. care, correction, rehab)? @ -No Was there de-escalation of care discussed even if they declined? (Discuss DNR or withdrawal of care, Hospice)? @ -No What co-morbidities impacted this encounter? (DM, HTN, Smoking, COPD, CAD, C ancer, CVA, Hep., AIDS, mental health diagnosis, sleep apnea, morbid obesity)? @ -Hernia Was patient admitted / discharged? @ -Discharged. Lab work unremarkable. Urinalysis negative for signs of infection. CT scan of the abdomen and pelvis reveals no acute intra-abdominal process. He does have redemonstration of compression fractures. The cause of his abdominal pain is not clear. It could be related to adhesions or he may be experiencing discomfort from his prior hernia repair. However, we reiterated with the patient that he needs to become established with a primary care provider and follow-up with a surgeon for reevaluation. He has been evaluated here and at other facilities for the same pain several times in the past. Pain was managed in the emergency department. Bentyl and Zofran prescribed to see if that offers any additional benefit. Patient discharged home in stable condition. Case discussed with ED attending Dr. Guerrero. Return precautions reviewed in depth, the patient is instructed to return to the emergency department with any new, worsening, or concerning symptoms. Patient verbalized understanding. Undiagnosed new problem with uncertain prognosis? @ -None Drug Therapy requiring intensive monitoring for toxicity (Heparin, Nitro, Insulin, Cardizem)? @ -None Were any procedures done? @ -None Diagnosis/symptom? @ -Abdominal pain Acute, or Chronic, or Acute on Chronic? @ -Acute Uncomplicated (without systemic symptoms) or Complicated (systemic symptoms)? @ -Uncomplicated Side effects of treatment? @ -None Exacerbation, Progression, or Severe Exacerbation] @ -Not applicable Poses a threat to life or bodily function? @ -No - Lab Data Result diagrams: 05/14/25 10:15 05/14/25 10:15 Lab Results 05/14/25 05/14/25 05/14/25 Range/Units 10:15 10:15 10:15 WBC 6.43 (4.50-10.00) 10*3/uL RBC 3.94 L (4.40-5.60) 10*6/uL Hgb 12.4 L (13.0-17.0) g/dL Hct 36.4 L (39.6-50.0) % MCV 92.4 (80.0-97.0) fL MCH 31.5 (27.0-32.0) pg MCHC 34.1 (32.0-37.0) g/dL Plt Count 171 (140-440) 10*3/uL MPV 10.0 (9.5-12.2) fL Immature Gran % (Auto) 0.8 % Neutrophils % 72.7 % Lymphocytes % 16.3 % Monocytes % 7.3 % Eosinophils % 2.3 % Basophils % 0.6 % Immature Gran # 0.05 H (0.00-0.04) 10*3/uL Neutrophils # 4.67 (1.80-7.70) 10*3/uL Lymphocytes # 1.05 (0.90-5.00) 10*3/uL Monocytes # 0.47 (0.20-1.00) 10*3/uL Eosinophils # 0.15 (0.04-0.35) 10*3/uL Basophils # 0.04 (0.00-0.10) 10*3/uL Sodium 137 (137-145) mmol/L Potassium 4.5 (3.5-5.1) mmol/L Chloride 105 (98-107) mmol/L Carbon Dioxide 20 L (22-30) mmol/L Anion Gap 12 mmol/L BUN 17 (9-20) mg/dL Creatinine 0.90 (0.66-1.25) mg/dL Est GFR (CKD-EPI)AfAm >90 (>60 ml/min/1.73 sqM) Est GFR (CKD-EPI)NonAf 86 (>60 ml/min/1.73 sqM) Glucose 102 H (74-99) mg/dL Plasma Lactic Acid Fredrick 1.1 (0.7-2.0) mmol/L Calcium 9.2 (8.4-10.2) mg/dL Magnesium 1.8 (1.6-2.3) mg/dL Total Bilirubin 0.9 (0.2-1.3) mg/dL AST 44 (17-59) U/L ALT 39 (4-49) U/L Alkaline Phosphatase 137 H (38-126) U/L Total Protein 7.6 (6.3-8.2) g/dL Albumin 3.8 (3.5-5.0) g/dL Amylase 62 (30-110) U/L Lipase 148 (23-300) U/L Urine Color Urine Appearance (Clear) Urine pH (5.0-8.0) Ur Specific Lincoln (1.001-1.035) Urine Protein (Negative) Urine Glucose (UA) (Negative) Urine Ketones (Negative) Urine Blood (Negative) Urine Nitrite (Negative) Urine Bilirubin (Negative) Urine Urobilinogen (<2.0) mg/dL Ur Leukocyte Esterase (Negative) Serum Alcohol <10 mg/dL 05/14/25 Range/Units 11:53 WBC (4.50-10.00) 10*3/uL RBC (4.40-5.60) 10*6/uL Hgb (13.0-17.0) g/dL Hct (39.6-50.0) % MCV (80.0-97.0) fL MCH (27.0-32.0) pg MCHC (32.0-37.0) g/dL Plt Count (140-440) 10*3/uL MPV (9.5-12.2) fL Immature Gran % (Auto) % Neutrophils % % Lymphocytes % % Monocytes % % Eosinophils % % Basophils % % Immature Gran # (0.00-0.04) 10*3/uL Neutrophils # (1.80-7.70) 10*3/uL Lymphocytes # (0.90-5.00) 10*3/uL Monocytes # (0.20-1.00) 10*3/uL Eosinophils # (0.04-0.35) 10*3/uL Basophils # (0.00-0.10) 10*3/uL Sodium (137-145) mmol/L Potassium (3.5-5.1) mmol/L Chloride (98-107) mmol/L Carbon Dioxide (22-30) mmol/L Anion Gap mmol/L BUN (9-20) mg/dL Creatinine (0.66-1.25) mg/dL Est GFR (CKD-EPI)AfAm (>60 ml/min/1.73 sqM) Est GFR (CKD-EPI)NonAf (>60 ml/min/1.73 sqM) Glucose (74-99) mg/dL Plasma Lactic Acid Fredrick (0.7-2.0) mmol/L Calcium (8.4-10.2) mg/dL Magnesium (1.6-2.3) mg/dL Total Bilirubin (0.2-1.3) mg/dL AST (17-59) U/L ALT (4-49) U/L Alkaline Phosphatase (38-126) U/L Total Protein (6.3-8.2) g/dL Albumin (3.5-5.0) g/dL Amylase (30-110) U/L Lipase (23-300) U/L Urine Color Light Yellow Urine Appearance Clear (Clear) Urine pH 6.0 (5.0-8.0) Ur Specific [place] 1.025 (1.001-1.035) Urine Protein Negative (Negative) Urine Glucose (UA) Negative (Negative) Urine Ketones Negative (Negative) Urine Blood Negative (Negative) Urine Nitrite Negative (Negative) Urine Bilirubin Negative (Negative) Urine Urobilinogen <2.0 (<2.0) mg/dL Ur Leukocyte Esterase Negative (Negative) Serum Alcohol mg/dL - Radiology Data Radiology results: report reviewed, image reviewed Disposition Clinical Impression: Abdominal pain Disposition: HOME SELF-CARE Instructions (If sedation given, give patient instructions): Abdominal Pain (ED) Additional Instructions: Return to the emergency department with any new, worsening, or concerning symptoms. You can take the Bentyl up to 4 times daily for feelings of abdominal pain. Take the Zofran up to every 8 hours as needed for nausea or vomiting. Follow up with your primary care provider in 1-2 days. Prescriptions: Dicyclomine [Bentyl] 20 mg PO QID PRN #20 tablet PRN Reason: Gi Upset Ondansetron Odt [Zofran Odt] 4 mg PO Q8HR PRN #15 tab PRN Reason: Nausea And Vomiting Is patient prescribed a controlled substance at d/c from ED?: No Referrals: None,Stated [Primary Care Provider] - 1-2 days [facility],Clinic [REFERRING] - 1-2 days Time of Disposition: 13:27
[2025-05-14 10:22] LABS: Basophils # (A) 0.04 10*3/uL (0.00-0.10); Basophils % (A) 0.6 %; Eosinophils # (A) 0.15 10*3/uL (0.04-0.35); Eosinophils % (A) 2.3 %; HCT 36.4 % (39.6-50.0); HGB 12.4 g/dL (13.0-17.0); Lymphocytes # (A) 1.05 10*3/uL (0.90-5.00); Lymphocytes % (A) 16.3 %; MCH 31.5 pg (27.0-32.0); MCHC 34.1 g/dL (32.0-37.0); MCV 92.4 fL (80.0-97.0); Monocytes # (A) 0.47 10*3/uL (0.20-1.00); Monocytes % (A) 7.3 %; Neutrophils # (A) 4.67 10*3/uL (1.80-7.70); Neutrophils % (A) 72.7 %; Platelet Count 171 10*3/uL (140-440); RBC 3.94 10*6/uL (4.40-5.60); RDW 15.7 % (11.5-14.5); WBC 6.43 10*3/uL (4.50-10.00)
[2025-05-14] MEDS: SODIUM CHLORIDE 0.9% 1,000 ML IV ONE (10:32)
[2025-05-14 10:33] LABS: ALT 39 U/L (4-49); African American GFR (CKD) >90 (>60 ml/min/1.73 sqM); Albumin 3.8 g/dL (3.5-5.0); Amylase 62 U/L (30-110); Anion Gap 12 mmol/L; Blood Urea Nitrogen 17 mg/dL (9-20); Calcium 9.2 mg/dL (8.4-10.2); Carbon Dioxide 20 mmol/L (22-30); Chloride 105 mmol/L (98-107); Glucose 102 mg/dL (74-99); Lipase 148 U/L (23-300); Non-African American GFR(CKD) 86 (>60 ml/min/1.73 sqM); Sodium 137 mmol/L (137-145); Total Protein 7.6 g/dL (6.3-8.2)
[2025-05-14] MEDS: ONDANSETRON 4 MG/2 ML VIAL IVP STA (10:33)
[2025-05-14] MEDS: MORPHINE SULFATE 4 MG/ML SYRINGE IVP STA (10:33)
[2025-05-14] MEDS: KETOROLAC 15 MG/ML 1 ML VIAL IVP STA (10:36)
[2025-05-14 10:40] LABS: AST 44 U/L (17-59); Alkaline Phosphatase 137 U/L (38-126); Magnesium 1.8 mg/dL (1.6-2.3); Potassium 4.5 mmol/L (3.5-5.1)
[2025-05-14] MEDS: HYDROmorphone 1 MG/ML 1 ML SYRINGE IVP STA ×2 (11:19→13:09)
[2025-05-14 12:06] LABS: Bilirubin,Urine Negative (Negative); Blood,Urine Negative (Negative); Color,Urine Light Yellow; Glucose,Urine (UA) Negative (Negative); Ketones,Urine Negative (Negative); Leukocyte Esterase,Urine Negative (Negative); Nitrite,Urine Negative (Negative); PH, Urine 6.0 (5.0-8.0); Protein,Urine Negative (Negative); Specific Gravity,Urine 1.025 (1.001-1.035); Urobilinogen,Urine <2.0 mg/dL (<2.0)
--- NOTE | 2025-05-14 12:53 | CT ---
EXAMINATION TYPE: CT abdomen pelvis w con DATE OF EXAM: 05/14/2025 11:45 AM COMPARISON: 03/29/2025 CLINICAL INDICATION: Male, 69 years old with history of LLQ abdominal pain, LLQ abdominal pain TECHNIQUE: Axial images were obtained from above the diaphragm to the pubic rami in the axial plane a t 5 mm thick sections. Reconstructed images are reviewed on the computer in the coronal plane. CONTRAST: 100ml mL of Isovue 300. Study performed without Oral Contrast DLP: 876.3 mGycm, Automated exposure control for dose reduction was used. FINDINGS: Limited CT sections are obtained the lung bases. Peribronchial thickening is present in the lower po sterior lung ibanez. Some atelectatic changes may be present in the lung bases. Findings are similar to the comparison.. Moderate coronary artery calcifications present. CT ABDOMEN: Liver: Normal Spleen: Splenomegaly measuring 13.4 cm. Normal left 12.5 cm. Pancreas: Normal Adrenal glands: The adrenal glands are normal. Gallbladder: Surgically absent Kidneys: No masses are evident. No hydronephrosis is present. Peripelvic cysts present on the left. Delayed images were obtained through the kidneys, which remain otherwise unremarkable. Aorta: Vascular calcification is within the aorta. Inferior vena cava: Normal. CT PELVIS: Loops of bowel within the abdomen and pelvis are normal. Multiple diverticula are present through th e sigmoid colon. There are loops of bowel which are incompletely distended or lack oral contrast li miting their evaluation. Appendix: Not identified. No dilated tubular structure or inflammatory change is evident. Urinary bladder: Normal. Genitourinary structures: Prostate has mild prominence. Osseous structures: No suspicious lytic or sclerotic lesions. Degenerative disc changes are present L 5-S1 with loss of disc height and vacuum disc phenomenon. Moderate superior endplate compression of L 4 is present. Some posterior wall displacement at the superior endplate is present measuring 0.4 cm. There is mild grade 1 spondylolisthesis of L4 and L5. Note is made of mild superior endplate changes T12 and L1. Changes are stable from comparison. IMPRESSION: 1. Atelectatic changes and peribronchial thickening bilateral lower lung ibanez present previously. 2. Splenomegaly. 3 multiple diverticuli within the sigmoid colon. 4. Stable appearing compression deformities at T12-L1 and to a moderate degree L4. 5. Grade 1 spondylolisthesis of L4 anterior to L5. [facility], Workstation: [facility], 05/14/2025 12:51 PM
[2025-05-14] MEDS: DICYCLOMINE 10 MG/ML 2 ML AMP IM STA (13:10)
[2025-05-14] MEDS: traMADol 50 MG STARTER PACK TAB BTL PO STA (14:22)
[2025-05-14 14:34] VITALS: BP 143/100; PULSE 86; RESP 20; TEMP 98.7
== END 2025-05-14 14:34 | disposition home or self-care (01) ==
LOC: EC 09:39
DX: R10.32 Left lower quadrant pain (principal); F17.200 Nicotine dependence, unspecified, uncomplicated
CPT/HCPCS: 36415; 80053; 82150; 83605; 83690; 83735; 85025; 81003; 87040; 80320; 74177; 99285; 96374; 96375; 96376; 96361; 96372; J2270; J0500; J2405; J1171; J1885; Q9967